=== PATIENT | male | born 1945 | race Caucasian/White ===

== ENCOUNTER → 2020-12-11 | Outpatient (CLI) | payer MEDICARE | LOC: HEART 5 11-30 13:30 | DX: I50.32 Chronic diastolic (congestive) heart failure (principal); I08.0 Rheumatic disorders of both mitral and aortic valves; R93.1 Abnormal findings on diagnostic imaging of heart and coronary circulation | CPT/HCPCS: 93306 ==

== ENCOUNTER → 2021-06-25 | Outpatient (CLI) | payer MEDICARE ==
[~2021-06-25] VITALS: Ht 180.3 cm; Wt 136.1 kg
== END | disposition home or self-care (01) ==
LOC: OPSV 06:29
PROC: 3E013TZ Introduction of Destructive Agent into Subcutaneous Tissue, Percutaneous Approach (ICD-10-PCS; principal; 2021-06-25)
DX: M72.0 Palmar fascial fibromatosis [Dupuytren] (principal); Z79.899 Other long term (current) drug therapy
CPT/HCPCS: J0775

== ENCOUNTER → 2022-01-10 | Outpatient (CLI) | payer MEDICARE ==
[~2022-01-10] MED LIST: ALLOPURINOL300 MG PO; BUMETANIDE1 MG PO; GABAPENTIN600 MG PO; OMEPRAZOLE40 MG PO; OXYCODONE-ACET1 EACH PO; POTASSIUM CHLO20 ME1 PO; PRAMIPEXOLE DIHY1 MG PO; SINGULAIR10 MG PO; ZEBETA 5 MG TAB5 MG PO
[2022-01-10 10:56] LABS: HEMOGLOBIN 13.5 gm/dl (14.0-17.5); RED BLOOD COUNT 4.75 M/UL (4.20-5.50); WHITE BLOOD COUNT 4.2 K/UL (4.5-11.0)
[2022-01-10 11:11] LABS: BUN/CREATININE RATIO 15 (0-10)
== END ==
LOC: OPSV2 09:00
PROVIDERS: Orthopaedic Surgery
DX: Z01.818 Encounter for other preprocedural examination (principal); G56.02 Carpal tunnel syndrome, left upper limb; R94.31 Abnormal electrocardiogram [ECG] [EKG]; R00.1 Bradycardia, unspecified
CPT/HCPCS: 36415; 80048; 85025; 93005

== ENCOUNTER → 2022-03-25 | Outpatient (CLI) | payer MEDICARE ==
[~2022-03-25] VITALS: Ht 180.3 cm; Wt 139.3 kg
[~2022-03-25] MED LIST changes: +LOSARTAN POTASS25 MG PO
== END | disposition home or self-care (01) ==
LOC: OPSV 06:44
PROC: 3E013TZ Introduction of Destructive Agent into Subcutaneous Tissue, Percutaneous Approach (ICD-10-PCS; principal; 2022-03-25)
DX: M72.0 Palmar fascial fibromatosis [Dupuytren] (principal); Z88.6 Allergy status to analgesic agent; Z88.8 Allergy status to other drugs, medicaments and biological substances
CPT/HCPCS: J0775